=== PATIENT | female | born 1980 | race Caucasian/White ===

== ENCOUNTER 2016-04-30 11:42 | Emergency (ER) | payer MEDICAID ==
[2016-04-30 12:00] VITALS: BP 116/80; PULSE 78; RESP 16; TEMP 98.4; O2SAT 98
--- NOTE | 2016-04-30 12:29 | UCPHY ---
H & P Time Seen by Provider: 04/30/16 11:49 Patient Type: Established HPI/ROS: 36-year-old female presents complaining uncontrolled cough last night and cough for several days, associated also with some nasal congestion. She also complains of a red spot on her back. No fevers or chills, she states she does not feel cough is serious only in that it is keeping her up all night and therefore causing her multiple sclerosis to act up. Review of systems General no fever no chills no weakness HEENT no eye pain no eye discharge. No eye redness, no sore throat Respiratory positive cough, no shortness of breath Cardiac no chest pain, no peripheral edema GI no abdominal pain, no diarrhea, no constipation, no nausea, no vomiting no flank pain, no hematuria, no dysuria Musculoskeletal positive myalgias, no joint pain Heme no easy bruising, no easy bleeding Endo no polyuria, no polydipsia Skin positive rashes, no pruritus Neuro no syncope, no dizziness, no headaches Psych is no suicidal ideation, no homicidal ideation Past Medical/Surgical History: Multiple sclerosis Social History: Single parent Smoking Status: Never smoked Physical Exam: 36-year-old female alert and oriented in no acute distress, coarse cough afebrile HEENT atraumatic normocephalic, extraocular muscles intact, anicteric Oropharynx negative for erythema negative exudate, tolerating her own secretions Neck supple no meningismus Lungs clear to auscultation bilaterally Heart regular rate and rhythm without murmur rub or gallop Abdomen nondistended normoactive bowel sounds soft nontender Back no CVA tenderness, no step-offs, no spinal tenderness Erythematous round raised lesion with central clearing Extremities no cyanosis clubbing or edema Neuro alert and oriented, no focal deficits Constitutional: Initial Vital Signs Temperature (C) 36.9 C 04/30/16 11:54 Heart Rate 78 04/30/16 11:54 Respiratory Rate 16 04/30/16 11:54 Blood Pressure 116/80 04/30/16 11:54 O2 Sat (%) 98 04/30/16 11:54 O2 Delivery Mode Room Air Allergies/Adverse Reactions: amitriptyline [Amitriptyline] Adverse Reaction (Verified 04/30/16 11:53) Hives nortriptyline [Nortriptyline] Adverse Reaction (Verified 04/30/16 11:53) Hives Home Medications: Medication Instructions Recorded Neurontin 400 mg 11/03/10 Acetaminophen with Codeine 1 each PO DAILY PRN #10 tablet 04/30/16 [Acetaminophen-Cod #4 Tablet] Adderall 5 mg Tablet 04/30/16 Albuterol [Ventolin Hfa Inhaler] 2 puffs IH Q4 PRN #1 mdi 04/30/16 Benzonatate [Tessalon Pearles (RX)] 200 mg PO TID PRN #30 cap 04/30/16 Nystatin [Mycostatin 15Gm] 1 jeanne TP BID #1 oint 04/30/16 Teriflunomide [Aubagio] 04/30/16 Medical Decision Making - Diagnostics Imaging: Chest x-ray negative ED Course/Re-evaluation: Patient seen and evaluated for persistent cough keeping her awake at night, no fevers or chills. But the lack of sleep is exacerbating her multiple sclerosis. She also complains of a rash on her back. Chest x-ray negative Impression/plan 1. Bronchitis Albuterol, Zithromax, Tylenol #4 for cough suppression 2. Tinea corporis Antifungal cream 2-3 times per day for 2 weeks Follow up with primary care physician - Data Points Medications Given: Discontinued Medications Albuterol/Ipratropium (Duoneb) 3 ml IH EDNOW ONE Stop: 04/30/16 12:35 Last Admin: 04/30/16 12:52 Dose: 3 ml Departure - Departure Disposition: Home, Routine, Self-Care Clinical Impression: Cough, Tinea corporis Condition: Good Instructions: Cold Symptoms (ED), Acute Bronchitis (ED), Tinea Corporis (ED) Referrals: Brain Adler MD [Primary Care Provider] - As per Instructions Prescriptions: Acetaminophen with Codeine [Acetaminophen-Cod #4 Tablet] 1 each PO DAILY PRN # 10 tablet PRN Reason: Cough, Severe Nystatin [Mycostatin 15Gm] 1 jeanne TP BID #1 oint Benzonatate [Tessalon Pearles (RX)] 200 mg PO TID PRN #30 cap PRN Reason: Cough, Moderate Albuterol [Ventolin Hfa Inhaler] 2 puffs IH Q4 PRN #1 mdi PRN Reason: Cough, Moderate - PQRS PQRS Measurement: na
[2016-04-30] MEDS ORDERED: IPRATROPIUM/ALBUTEROL 3 ML DEYVIAL ONE (12:32)
[2016-04-30] MEDS ORDERED: IPRATROPIUM/ALBUTEROL 3 ML DEYVIAL IH ONE (12:34)
== END 2016-04-30 13:06 | disposition home or self-care (01) ==
LOC: CED 11:42
DX: J40 Bronchitis, not specified as acute or chronic (principal); B35.4 Tinea corporis; G35 Multiple sclerosis
CPT/HCPCS: 99214-PO; G0463-PO

== ENCOUNTER 2016-06-02 12:51 | Emergency (ER) | payer MEDICAID ==
[2016-06-02 13:09] VITALS: BP 133/99; PULSE 87; RESP 14; TEMP 97.5; O2SAT 96
--- NOTE | 2016-06-02 13:43 | UCPHY ---
H & P Time Seen by Provider: 06/02/16 13:12 Patient Type: Established HPI/ROS: This patient ran into a sharp edge of a counter top at home with her right lower belly causing laceration to her abdominal wall. She reports localize mild pain and mild bleeding that stopped with direct pressure. The injury occurred yesterday. She cleaned at but came in today for evaluation. ROS: No other injuries. No feeling of the pain in the belly. No nausea vomiting. 5 point ROS is otherwise negative Past Medical/Surgical History: Otherwise healthy Smoking Status: Never smoked Physical Exam: Physical Exam Vital signs are normal. General: No acute distress Eyes: Pupils equal and react to light. Extraocular motions are intact. Lungs: No respiratory distress. Cardiac: Brisk capillary refill is intact throughout. Skin: No rash or pallor. There is out 1 cm v-shaped laceration to the right lower abdominal wall. The base of the wound is easily visualize. There is no active bleeding. No foreign bodies. Wound is gaping open by 5 mm. Neuro: Alert and oriented x3 with no sensorimotor deficits. Constitutional: Initial Vital Signs Temperature (C) 36.4 C 06/02/16 13:06 Heart Rate 87 06/02/16 13:06 Respiratory Rate 14 06/02/16 13:06 Blood Pressure 133/99 H 06/02/16 13:06 O2 Sat (%) 96 06/02/16 13:06 O2 Delivery Mode Room Air Allergies/Adverse Reactions: amitriptyline [Amitriptyline] Allergy (Verified 06/02/16 12:59) Hives nortriptyline [Nortriptyline] Allergy (Verified 06/02/16 12:59) Hives Home Medications: Medication Instructions Recorded Neurontin 400 mg 11/03/10 Acetaminophen with Codeine 1 each PO DAILY PRN #10 tablet 04/30/16 [Acetaminophen-Cod #4 Tablet] Adderall 5 mg Tablet 04/30/16 Albuterol [Ventolin Hfa Inhaler] 2 puffs IH Q4 PRN #1 mdi 04/30/16 Benzonatate [Tessalon Pearles (RX)] 200 mg PO TID PRN #30 cap 04/30/16 Nystatin [Mycostatin 15Gm] 1 jeanne TP BID #1 oint 04/30/16 Teriflunomide [Aubagio] 04/30/16 MDM/Departure - MDM Procedures: The wound is described physical exam-1 cm. The wound was copiously irrigated with saline. The wound was explored for foreign bodies and none were found. The wound was prepped and draped in the normal sterile fashion. The wound was anesthetized using 1% plain lidocaine, 27 gauge needle, 2 mL with good effect. The edges were reapproximated using 5 0 Ethilon-3 running sutures with good hemostasis and cosmesis. The patient tolerated the procedure well. There were no complications - Depart Disposition: Home, Routine, Self-Care Clinical Impression: Laceration Condition: Good Instructions: Care For Your Stitches (ED) Additional Instructions: Diagnosis: Abdominal wall laceration Plan: Keep the wound clean and dry for the next 2 days. Then clean daily with warm soapy water Return for suture removal in 10-12 days Ibuprofen Tylenol for discomfort as needed Return sooner for redness, discharge or other concerns for infection. Referrals: CUBA SHIELDS,. [Primary Care Provider] - As per Instructions - PQRS PQRS Measurement: NA
== END 2016-06-02 13:53 | disposition home or self-care (01) ==
LOC: CED 12:51
PROC: 0HQ7XZZ Repair Abdomen Skin, External Approach (ICD-10-PCS; principal; 2016-06-02)
DX: S31.113A Laceration without foreign body of abdominal wall, right lower quadrant without penetration into peritoneal cavity, initial encounter (principal); Y92.019 Unspecified place in single-family (private) house as the place of occurrence of the external cause; W22.03XA Walked into furniture, initial encounter; Y99.8 Other external cause status
CPT/HCPCS: G0463-PO

== ENCOUNTER 2017-02-18 06:47 | Emergency (ER) | payer MEDICAID ==
--- NOTE | 2017-02-18 07:30 | EDPHY ---
H & P Time Seen by Provider: 02/18/17 07:00 HPI/ROS: This patient complains of facial pain if after 2 weeks of URI symptoms. She explains that she had nasal congestion he occasional dry cough that started 2 weeks ago. She felt like her symptoms had nearly resolved prior to the last 3 days when she started developing facial pressure that steadily increased worse than the right maxillary sinus region and elsewhere. The symptoms worsen when she bends forward or coughs. No other exacerbating factors. She reports the intensity the face pain is moderate baseline. She has not had any medications for symptoms other than [id number] analgesics with partial relief. She drove herself here by private vehicle for further evaluation of her symptoms. ROS: No high fevers or chills. No other constitutional symptoms. HEENT: As per HPI. No ear pain. She does have a mild sore throat associated with your symptoms. She still tolerating good p.o. intake despite this. Pulmonary: Occasional dry cough. No hemoptysis. No sputum production. No shortness of breath. Cardiovascular: No complaints GI: No nausea vomiting or diarrhea. Integumentary: No skin rash. 7 point ROS is otherwise negative. Past Medical/Surgical History: MS Smoking Status: Never smoked Physical Exam: Physical Exam Vital signs are normal. General: No acute distress HEENT: Nose: Yellow discharge bilaterally. She has right maxillary sinus tenderness to percussion more than tenderness to other sinuses. Ears: External canals and tympanic membranes are clear with no erythema or abnormal findings bilaterally. Oropharynx: No erythema or exudates. No dysphonia. No drooling or stridor. Eyes: Pupils equal and react to light. Extraocular motions are intact. Neck: Supple with no meningismus. No lymphadenopathy Lungs: Clear to auscultation bilaterally with no rales, rhonchi or wheeze. No respiratory distress. Cardiac: Regular rate and rhythm with no murmur gallop or rub Skin: No rash or pallor. Neuro: Alert with no focal deficits noted. Initial differential diagnosis: Bacterial sinusitis versus viral rhinosinusitis. Doubt strep Constitutional: Initial Vital Signs Temperature (C) 36.8 C 02/18/17 07:18 Heart Rate 88 02/18/17 07:18 Respiratory Rate 16 02/18/17 07:18 Blood Pressure 135/93 H 02/18/17 07:18 O2 Sat (%) 96 11/09/17 07:18 O2 Delivery Mode Room Air Allergies/Adverse Reactions: amitriptyline [Amitriptyline] Allergy (Verified 06/02/16 12:59) Hives nortriptyline [Nortriptyline] Allergy (Verified 06/02/16 12:59) Hives Home Medications: Medication Instructions Recorded Neurontin 400 mg 11/03/10 Acetaminophen with Codeine 1 each PO DAILY PRN #10 tablet 04/30/16 [Acetaminophen-Cod #4 Tablet] Adderall 5 mg Tablet 04/30/16 Albuterol [Ventolin Hfa Inhaler] 2 puffs IH Q4 PRN #1 mdi 04/30/16 Benzonatate [Tessalon Pearles (RX)] 200 mg PO TID PRN #30 cap 04/30/16 Nystatin [Mycostatin 15Gm] 1 jeanne TP BID #1 oint 04/30/16 Teriflunomide [Aubagio] 04/30/16 Azithromycin [Zithromax] 250 mg PO DAILY #4 tab 02/18/17 Fluticasone Nasal [Flonase Nasal 2 sprays NASAL DAILY #1 mdi 02/18/17 Ruby] MDM/Departure - MDM ED Course/Re-evaluation: Discussion: Given 2 weeks of symptoms now facial pain sinus tenderness will cover bacterial sinusitis with Zithromax antibiotic. I counseled patient regarding this. She does not have sepsis physiology and has no red flag findings that would suggest [employer] infection or other complications at this time - Depart Disposition: Home, Routine, Self-Care Clinical Impression: Acute sinusitis Qualifiers: Sinusitis location: maxillary Recurrence: not specified as recurrent Qualified Code(s): J01.00 - Acute maxillary sinusitis, unspecified Condition: Good Instructions: Sinusitis (ED) Additional Instructions: Diagnosis: Acute sinusitis Plan: Zithromax antibiotic Humidifier Flonase steroid nasal spray Ibuprofen Tylenol for discomfort as needed Return for any significant worsening despite the treatment plan Follow up with primary care physician for any ongoing symptoms despite treatment plan. Prescriptions: Azithromycin [Zithromax] 250 mg PO DAILY #4 tab Fluticasone Nasal [Flonase Nasal Ruby] 2 sprays NASAL DAILY #1 mdi
[2017-02-18] MEDS ORDERED: AZITHROMYCIN 250 MG TAB PO ONE (07:35)
[2017-02-18 07:41] VITALS: BP 135/93; PULSE 88; RESP 16; TEMP 98.2; O2SAT 96
== END 2017-02-18 07:50 | disposition home or self-care (01) ==
LOC: CED 06:47
DX: J01.00 Acute maxillary sinusitis, unspecified (principal)

== ENCOUNTER 2017-06-08 10:34 | Emergency (ER) | payer MEDICAID ==
[2017-06-08 10:53] VITALS: BP 126/81; PULSE 87; RESP 12; TEMP 98.4; O2SAT 96
--- NOTE | 2017-06-08 11:22 | EDPHY ---
H & P Time Seen by Provider: 06/08/17 11:01 HPI/ROS: This patient is concerned about her surgical abdominal wall wound from recent cholecystectomy performed a [facility] on May [address] Rome without complications. She reports that the wound was closed with buried sutures and Dermabond externally. She reports that the midline wound is"not healing". She describes onset of redness and trace yellow discharge over the past few days. She describes 4/10 discomfort to the affected area. She also reports which she thinks is bandage allergy to the skin surrounding the surgical wound that developed over the past few days and is described as slight itching and burning discomfort. She has no other significant associated symptoms. ROS: No fevers. No other constitutional symptoms GI: Minimal nausea intermittently but none currently. No other symptoms Integumentary as per HPI. Otherwise negative 5 point ROS is otherwise negative. Smoking Status: Never smoked Physical Exam: Physical Exam Vital signs are normal. General: No acute distress Lungs: No respiratory distress. Cardiac: Brisk capillary refill is intact throughout. Pulses are 2+ and symmetric in the affected extremity. Skin: Patient has midline wound consistent with a small laparoscopic incision has erythema with superficial desquamation and crusty film present with no fluctuance. There is erythema that is approximately 2 x 1.5 cm in size. No significant tenderness. No exposed sutures. Surrounding the skin and shape of the bandages mild erythema with oblong papules that are not warm to touch and are not fluctuant. These niurka with pressure Abdomen: Soft, nontender, normoactive Neuro: Alert with no sensorimotor deficits. Initial differential diagnosis: Contact dermatitis/allergic dermatitis from bandage, superficial wound infection, suture allergy Constitutional: Initial Vital Signs Temperature (C) 36.9 C 06/08/17 10:47 Heart Rate 87 06/08/17 10:47 Respiratory Rate 12 06/08/17 10:47 Blood Pressure 126/81 H 06/08/17 10:47 O2 Sat (%) 96 06/08/17 10:47 O2 Delivery Mode Room Air Allergies/Adverse Reactions: amitriptyline [Amitriptyline] Allergy (Verified 06/08/17 10:53) Hives nortriptyline [Nortriptyline] Allergy (Verified 06/08/17 10:53) Hives Home Medications: Medication Instructions Recorded Neurontin 400 mg 11/03/10 Acetaminophen with Codeine 1 each PO DAILY PRN #10 tablet 04/30/16 [Acetaminophen-Cod #4 Tablet] Adderall 5 mg Tablet 04/30/16 Nystatin [Mycostatin 15Gm] 1 jeanne TP BID #1 oint 04/30/16 Cephalexin [Keflex (*)] 500 mg PO QID #28 cap 06/08/17 Hydrocortisone 0.2% Valerate 1 jeanne TP BID #15 g 06/08/17 [Westcort 0.2% Cream (*)] Prozac 10 MG (*) 06/08/17 MDM/Departure - [facility] ED Course/Re-evaluation: A gently cleaned her wound and obtained a swab culture sent which subsequently grew methicillin sensitive Staph aureus. I counseled this patient regarding superficial wound infection and started her on Keflex antibiotic. Also started around Westcort steroid cream for the adhesive contact dermatitis that surrounds the superficial wound infection. Answered all her questions prior to discharge home. She understands need to return for any worsening of symptoms despite the treatment plan. - Depart Disposition: Home, Routine, Self-Care Clinical Impression: Superficial postoperative wound infection Qualifiers: Encounter type: initial encounter Qualified Code(s): T81.4XXA - Infection following a procedure, initial encounter Atopic contact dermatitis Qualifiers: Contact dermatitis trigger: adhesive Qualified Code(s): L23.1 - Allergic contact dermatitis due to adhesives Condition: Good Instructions: Contact Dermatitis (ED), Cellulitis (ED) Additional Instructions: Diagnoses: 1. Superficial postoperative wound infection 2. Atopic dermatitis to bandage adhesive. Plan: Clean wound daily with warm soapy water and apply bacitracin if the wound is dry. Keflex antibiotic To surrounding or rash that is an allergic rash to bandage adhesive -avoid bandages with adhesive Apply Westcort steroid cream 2 times a day for the next 2 weeks or until resolved. Follow up with your physician or surgeon for recheck in 1 week. Return for any significant worsening despite the treatment plan. Prescriptions: Cephalexin [Keflex (*)] 500 mg PO QID #28 cap Hydrocortisone 0.2% Valerate [Westcort 0.2% Cream (*)] 1 jeanne TP BID #15 g Referrals: Brain Adler MD [Primary Care Provider] - As per Instructions
== END 2017-06-08 11:33 | disposition home or self-care (01) ==
LOC: CED 10:34
DX: T81.4XXA Infection following a procedure, initial encounter (principal); L23.1 Allergic contact dermatitis due to adhesives; Y82.8 Other medical devices associated with adverse incidents